=== PATIENT | female | born 1970 | race Caucasian/White ===

== ENCOUNTER 2017-10-29 07:10 | Emergency (ER) | payer BC ==
[~2017-10-29] VITALS: Ht 162.6 cm; Wt 75.0 kg
[2017-10-29 07:23] VITALS: BP 98/52; PULSE 63; RESP 19; O2SAT 99
--- NOTE | 2017-10-29 07:55 | PD ---
HPI Chief Complaint: Injury Time Seen by Provider: 07:42 Travel History International Travel<30 days: No Contact w/Intl Traveler<30days: No Traveled to known affect area: No History of Present Illness HPI The patient is a 47-year-old female who presents to the emergency department for finger pain and knee pain after a fall. The patient states she went out to check the mailbox this morning and when she was walking back to the house she tripped and fell. The patient notes an injury to the fifth digit of the left hand with obvious deformity. She also states she hyperextended the acrylic nail on the third digit of the left hand. The patient also fell on her left knee resulting in abrasion and hematoma with some pain. She is able to bear weight on the affected leg. She denies any head trauma or loss of consciousness during the fall. Last tetanus shot is unknown. Symptoms are moderate. She is right-hand dominant. [facility] Past Medical History Medical History: Denies Significant Hx ?: Not LMP: 09/2017 Past Surgical History Narrative Surgical D&C Social History Tobacco Use: No Allergies-Medications (Allergen,Severity, Reaction): Coded Allergies: penicillin G (Verified Allergy, Severe, RASH, 10/29/17) Reported Meds & Prescriptions Reported Meds & Active Scripts Active No Active Prescriptions or Reported Medications Review of Systems Except as stated in HPI: all other systems reviewed are Neg HENT: No: Headaches, Neck Pain Cardiovascular: No: Chest Pain or Discomfort Respiratory: No: Shortness of Breath Gastrointestinal: No: Nausea, Vomiting, Abdominal Pain Musculoskeletal: Positive: Pain Skin: Positive Other (As noted in the history of present) Neurologic: No: Headache, Paresthesia, Sensory Disturbance Physical Exam Narrative GENERAL: Awake, alert, pleasant 47-year-old female who appears her stated age and is in no acute respiratory distress. SKIN: Focused skin assessment warm/dry. HEAD: Atraumatic. Normocephalic. EYES: Pupils equal and round. No scleral icterus. No injection or drainage. ENT: No nasal bleeding or discharge. Mucous membranes pink and moist. NECK: Trachea midline. No JVD. CARDIOVASCULAR: Regular rate and rhythm. No murmur appreciated. RESPIRATORY: No accessory muscle use. Clear to auscultation. Breath sounds equal bilaterally. GASTROINTESTINAL: Abdomen soft, non-tender, nondistended. MUSCULOSKELETAL: Obvious deformity to the fifth digit left hand at the interphalangeal joint with displacement. Hyperextend acrylic nail to the third digit left hand with small amount of blood at the proximal nail. Abrasion noted over the anterior aspect of the left knee with mild swelling. Mild tenderness but the patient is able to flex the knee to 30. Patella is midline. Patient has full range of motion of the right upper extremity and right lower extremity. Neurologic: Nonfocal. PSYCHIATRIC: Appropriate mood and affect; insight and judgment normal. Data Data Last Documented VS Vital Signs Date Time Temp Pulse Resp B/P (MAP) Pulse Ox O2 Delivery O2 Flow Rate FiO2 10/29/17 07:23 63 19 98/52 (67) 99 Orders Orders Tetanus/Diphtheria Tox Adult (Tetanus/Di (10/29/17 08:00) Lidocaine 1% Inj (Xylocaine 1% Inj) (10/29/17 08:00) Finger ([id number]) (10/29/17 ) Knee, Ltd (1 Or 2vws) (10/29/17 ) Support Splint (10/29/17 09:23) Finger ([id number]) (10/29/17 ) MDM Medical Decision Making Medical Screen Exam Complete: Yes Emergency Medical Condition: Yes Medical Record Reviewed: Yes Interpretation(s) Last Impressions Knee X-Ray 10/29/17 0000 Signed Impressions: Service Date/Time: Sunday, October 29, 2017 08:16 - CONCLUSION: No acute disease. Edgar Ferro MD Finger X-Ray 10/29/17 0000 Signed Impressions: Service Date/Time: Sunday, October 29, 2017 08:11 - CONCLUSION: Fifth PIP dislocation. Edgar Ferro MD X-ray of the fifth digit left hand reveals normal alignment of the PIP joint fifth digit status post reduction. Differential Diagnosis Differential diagnosis includes fracture, dislocation, contusion, hematoma, abrasion, sprain, strain, mechanical fall, partial nail avulsion. Narrative Course X-ray of the fifth digit left hand and left knee were obtained. The patient had a digital block to the third digit and fifth digit of the left hand. Tetanus shot was updated. After digital block to the third and fifth digit the fifth digit of the left hand was reduced at the PIP. The patient was placed in a splint. Postreduction x-ray was obtained. The patient does have a spiral fracture through the distal proximal phalanx, will be placed in the splint is advised to follow-up with her primary physician. X-ray of the knee was unremarkable. The patient be discharged home in ibuprofen. Procedures Procedure Narrative The patient had a digital block to the third and fifth digit of the left hand with 1% lidocaine using a 27-gauge needle. After anesthetic effect the dislocation of the fifth digit left hand was reduced and the patient was placed in a splint. Postreduction x-ray was obtained which reveals normal alignment. Patient tolerated the procedure without difficulty and there is no obvious complications. Diagnosis Primary Impression: Dislocation, finger closed Qualified Codes: S63.259A - Unspecified dislocation of unspecified finger, initial encounter Additional Impressions: Nail avulsion, finger Qualified Codes: S61.309A - Unspecified open wound of unspecified finger with damage to nail, initial encounter Left knee pain Qualified Codes: M25.562 - Pain in left knee Patient Instructions: General Instructions Additional Instructions: Please provide the patient a copy of her x-ray results at discharge. Ibuprofen as needed. Wound care instructions. Follow-up with your doctor for follow-up in regards to the finger dislocation and splint. Med/Other Pt SpecificInfo: Prescription(s) given Scripts Ibuprofen (Ibuprofen) 600 Mg Tab 600 MG PO Q6H Y for Pain/Inflammation, #20 TAB 0 Refills Prov: Wally Tello MD 10/29/17 Disposition: 01 DISCHARGE HOME Condition: Stable Wally Tello MD October 29, 2017 07:55
[2017-10-29] MEDS ORDERED: TETANUS/DIPHTHERIA TOXOID ADULT 0.5 ML VIAL IM ONE (08:00)
[2017-10-29] MEDS ORDERED: LIDOCAINE HCL 1% 30 ML VIAL INFIL ONE (08:00)
--- NOTE | 2017-10-29 08:30 | RADRPT ---
EXAM DATE/TIME: 10/29/2017 08:11 [facility] COMPARISON: No previous studies available for comparison. INDICATIONS : Left hand, 5th digit pain after fall. MEDICAL HISTORY : None. SURGICAL HISTORY : None. ENCOUNTER: Initial ACUITY: 1 day PAIN SCORE: 10/10 LOCATION: Left hand, 5th digit. FINDINGS: There is a dislocation at the fifth PIP joint with the middle phalanx being displaced medially. A fra cture is not clearly seen. CONCLUSION: Fifth PIP dislocation. Edgar Ferro MD on October 29, 2017 at 8:28 Board Certified Radiologist. This report was verified electronically.
--- NOTE | 2017-10-29 08:30 | RADRPT ---
EXAM DATE/TIME: 10/29/2017 08:16 [facility] COMPARISON: No previous studies available for comparison. INDICATIONS : Left knee anterior pain after fall. MEDICAL HISTORY : None. SURGICAL HISTORY : None. ENCOUNTER: Initial ACUITY: 1 day PAIN SCORE: 10/10 LOCATION: Left knee FINDINGS: Two view examination of the left knee demonstrates no evidence of fracture or dislocation. Bony mine ralization is normal. The suprapatellar soft tissues have a normal configuration. CONCLUSION: No acute disease. Edgar Ferro MD on October 29, 2017 at 8:29 Board Certified Radiologist. This report was verified electronically.
--- NOTE | 2017-10-29 09:53 | RADRPT ---
EXAM DATE/TIME: 10/29/2017 09:41 [facility] COMPARISON: FINGER LEFT 5TH DIGIT ([id number]), October 29, 2017, 8:11. INDICATIONS : Post reduction Left 5th finger. MEDICAL HISTORY : None. SURGICAL HISTORY : None. ENCOUNTER: Subsequent ACUITY: 1 day PAIN SCORE: 8/10 LOCATION: Left 5th finger. FINDINGS: External splint of the 5th digit. There is normal alignment of the osseous structures of the 4th and 5th digits. No fractures seen. CONCLUSION: Normal alignment of the PIP joint 5th digit status post reduction. Davide Robbins MD on October 29, 2017 at 9:50 Board Certified Radiologist. This report was verified electronically.
[2017-10-29] MEDS ORDERED: IBUP-232 PO (09:59)
== END 2017-10-29 10:55 | disposition home or self-care (01) ==
LOC: NEPC 07:10
DX: S63.287A Dislocation of proximal interphalangeal joint of left little finger, initial encounter (principal); S80.212A Abrasion, left knee, initial encounter; M25.562 Pain in left knee; S61.303A Unspecified open wound of left middle finger with damage to nail, initial encounter; W01.0XXA Fall on same level from slipping, tripping and stumbling without subsequent striking against object, initial encounter; Y93.01 Activity, walking, marching and hiking; Y92.009 Unspecified place in unspecified non-institutional (private) residence as the place of occurrence of the external cause; Z23 Encounter for immunization
CPT/HCPCS: 26770; 73140; 73560; 90471; 90714